=== PATIENT | female | born 1970 | race Caucasian/White ===

== ENCOUNTER 2017-03-08 07:09 | Day surgery (SDC) | payer OTHER ==
[2016-12-04 15:28] VITALS: BMI 28.3
[2017-03-08 08:05] VITALS: O2SAT 100
--- NOTE | 2017-03-08 08:55 | CP.SDSHP ---
Same Day Surgery H & P - History Proposed Procedure: Colonoscopy Pre-Op Diagnosis: Iron deficiency anemia - Previous Medical/Surgical History Cardiac: Hypertension Misc: Other Comments: RA, SLE Previous Surgical History: Cholecystectomy, thyroidectomy - Allergies Allergies: Allergies No Known Allergies Allergy (Verified 03/08/17 07:47) - Current Medications Current Medications: See reconciliation sheet - Physical Exam General Appearance: WD WN female in NAD Vital Signs: Vital Signs 03/08/17 03/08/17 08:01 08:13 Temperature 97.8 F Pulse Rate 80 80 Respiratory 20 Rate Blood Pressure 111/78 O2 Sat by Pulse 100 Oximetry Mental Status: Alert & Oriented x3 Neuro: WNL Heart: WNL Lungs: WNL GI: WNL - {Optional Preform as Required} Abdomen: WNL - Impression Impression: Lower GI bleeding Pt. Evaluated Today:Candidate for Anesthesia & Procedure: Yes - Date & Time Date: 03/08/17 Time: 08:55 Short Stay Discharge - Short Stay Discharge Admitting Diagnosis/Reason for Visit: ANEMIA / CONSTIPATION Disposition: HOME/ ROUTINE
[2017-03-08] MEDS ORDERED: Propofol 10 mg/ml Inj (20 ML) ONE (09:46)
[2017-03-08 10:12] VITALS: TEMP 97.4
[2017-03-08 11:10] VITALS: BP 110/66; PULSE 74; RESP 18
== END 2017-03-08 10:55 | disposition home or self-care (01) ==
LOC: C.ENDO 07:09
PROVIDERS: ATTEND Internal Medicine Gastroenterology
DX: D12.3 Benign neoplasm of transverse colon (principal); K64.8 Other hemorrhoids
CPT/HCPCS: 45380; 84703; 88305; J2704

== ENCOUNTER 2019-01-12 15:10 | Outpatient (CLI) | payer BC | END 2019-01-12 15:11 | disposition home or self-care (01) | LOC: C.USIC 15:10 ==

== ENCOUNTER → 2019-04-04 | Outpatient (CLI) | payer BC | LOC: C.LAB 08:32 ==

== ENCOUNTER 2019-04-17 08:07 | Outpatient (CLI) | payer BC | END 2019-04-17 08:08 | disposition home or self-care (01) | LOC: C.LAB 08:07 | DX: M32.9 Systemic lupus erythematosus, unspecified (principal) ==